=== PATIENT | male | born 1970 | race Caucasian/White ===

== ENCOUNTER 2022-04-16 20:17 | Emergency (ER) | payer OTHER ==
[~2022-04-16] VITALS: Ht 195.6 cm; Wt 95.3 kg
--- NOTE | 2022-04-16 20:37 | NUR ---
[facility] FOR [facility]. REQUESTING FOR COVID TEST. IS COVID POSITIVE. PT A/OX4. PT TOLERATING R/A WELL WITH NO RESP DISTRESS
--- NOTE | 2022-04-16 20:45 | NUR ---
COVID ANTIGEN SWAB COLLECTED AND SENT TO LAB
--- NOTE | 2022-04-16 21:27 | NUR ---
Patient discharged to [facility] custody in stable condition. Written and verbal after care instructions given. Patient verbalizes understanding of instruction. pt ambulatory with a steady gait
[2022-04-16 21:35] VITALS: BP 163/91
== END 2022-04-16 21:35 ==
LOC: ER 20:26
DX: Z20.822 Contact with and (suspected) exposure to COVID-19 (principal); I10 Essential (primary) hypertension
CPT/HCPCS: 99283; 87426; C9803